=== PATIENT | female | born 1990 | race Caucasian/White ===

== ENCOUNTER 2021-07-19 19:56 | Emergency (ER) | payer OTHER ==
[~2021-07-19] VITALS: Ht 162.6 cm; Wt 95.3 kg
[2021-07-19 20:15] VITALS: BP_SYST 110
--- NOTE | 2021-07-19 20:28 | NUR ---
30 YR OLD FEMALE WITH COMPLAINT OF RIGHT SHOULDER AND NECK PAIN 9/10 ONE HOUR AGO WHILE PLAYING VOLLYBALL WITH FRIENDS AND SUSTAINING A FALL.PT REPORTS INABILITY TO LIFT RIGHT ARM PT REQUESTS ONLY LIQUID MEDICATION DUE TO DIFFICULTY SWALLOWING PILLS. PT REPORTS TAKING TWO TYLENOL PRIOR TO ARRIVAL. PT PLACED IN ROOM 8
--- NOTE | 2021-07-19 20:34 | NUR ---
ER at bedside examining patient.
[2021-07-19] MEDS ORDERED: HYDR-3917 PO (21:59)
[2021-07-19] MEDS ORDERED: IBUP-1969 PO (21:59)
--- NOTE | 2021-07-19 21:59 | NUR ---
2130 VS TAKEN AND RECORDED AWAITING FOR DISPOSITION
--- NOTE | 2021-07-19 22:15 | NUR ---
right sling placed on patient. pms patient after sling application
[2021-07-19 22:30] VITALS: BP_SYST 135
--- NOTE | 2021-07-19 22:32 | NUR ---
Patient given written and verbal discharge instructions and verbalizes understanding. SAMM FERNANDEZ MD discussed with patient the results and treatment provided. Patient in stable condition. Rx of given. Patient educated on pain management and to follow up with PMD. Pain Scale [4]. Opportunity for questions provided and answered. Medication side effect fact sheet provided.
== END 2021-07-19 22:30 | disposition home or self-care (01) ==
LOC: SED 19:56
DX: S43.401A Unspecified sprain of right shoulder joint, initial encounter (principal); W01.0XXA Fall on same level from slipping, tripping and stumbling without subsequent striking against object, initial encounter; Y93.89 Activity, other specified; Y92.89 Other specified places as the place of occurrence of the external cause; Y99.8 Other external cause status
CPT/HCPCS: 71045; 73030; 81025; 99284